=== PATIENT | male | born 1970 | race Two or more races ===

== ENCOUNTER 2025-03-11 00:26 | Emergency (ER) | payer MEDICAID, OTHER ==
[~2025-03-11] VITALS: Ht 172.7 cm; Wt 99.3 kg
[2025-03-11 01:02] LABS: PLATELET COUNT (AUTO) 370 K/uL (150-450); RED BLOOD CELL COUNT(AUTO) 4.95 MIL/uL (4.5-6.0); RED CELL DISTRIBUTION WIDTH 16.4 % (11.5-15.0); WHITE BLOOD COUNT (AUTO) 8.5 K/uL (4.3-11.0)
[2025-03-11 01:09] LABS: CALCIUM, SERUM 8.4 mg/dL (8.5-10.1); CREATININE 0.7 mg/dL (0.6-1.3); SODIUM SERUM 137 mmol/L (136-145); UREA NITROGEN, BLOOD 12 mg/dL (7-18)
[2025-03-11 01:21] LABS: ASPARTATE AMINOTRANSFERASE 19 U/L (15-37); NT-PRO BNP 40 pg/mL (0-125); TOTAL PROTEIN, SERUM 8.4 g/dL (6.4-8.2)
[2025-03-11 07:03] VITALS: BP 177/138; TEMP 98.1; O2SAT 98
== END 2025-03-11 07:03 | disposition home or self-care (01) ==
LOC: ER 00:29
DX: R07.89 Other chest pain (principal); R06.02 Shortness of breath
CPT/HCPCS: 36415; 71045-TC; 80048-TC; 80076-TC; 83880; 84484-TC; 85025-TC